=== PATIENT | female | born 1945 | race Caucasian/White ===

== ENCOUNTER → 2020-05-03 | Outpatient (CLI) | payer MEDICARE | END | disposition home or self-care (01) | LOC: LAB SHORT 19:48 | DX: R30.0 Dysuria (principal) | CPT/HCPCS: 87086 ==

== ENCOUNTER → 2022-04-22 | Outpatient (CLI) | payer OTHER ==
[2022-04-23 10:44] LABS: Stool Occult Bld Immuno 1 Negative (NEGATIVE)
== END | disposition home or self-care (01) ==
LOC: LAB 14:10 → LAB SHORT 14:10
PROVIDERS: Family Medicine
DX: Z12.11 Encounter for screening for malignant neoplasm of colon (principal)
CPT/HCPCS: G0328

== ENCOUNTER → 2022-10-15 | Outpatient (CLI) | payer OTHER ==
[2022-10-15 16:11] LABS: BASOPHILS ABSOLUTE AUTO 0.06 K/mm3 (0.00-0.23); BASOPHILS PERCENT AUTO 1 % (0-2); EOSINOPHILS PERCENT AUTO 1 % (0-6); Hematocrit 41.1 % (33.0-51.0); Hemoglobin 13.7 g/dL (11.5-16.0); IMMATURE GRAN ABSOLUTE AUTO 0.03 K/mm3 (0.00-0.10); IMMATURE GRAN PERCENT AUTO 0 % (0-1); LYMPHOCYTES ABSOLUTE AUTO 2.11 K/mm3 (0.84-5.20); LYMPHOCYTES PERCENT AUTO 20 % (21-46); MONOCYTES ABSOLUTE AUTO 0.84 K/mm3 (0.16-1.47); MONOCYTES PERCENT AUTO 8 % (4-13); Mean Corpuscular HGB 29.1 pg (26.0-34.0); Mean Corpuscular HGB Conc 33.3 g/dL (31.5-36.5); Mean Corpuscular Volume 87 fL (80-100); Mean Platelet Volume 9.8 fL (9.1-12.4); NEUTROPHILS PERCENT AUTO 70 % (41-73); Platelet Count 227 K/mm3 (150-400); RDW Coefficient Variation 13.5 % (11.7-14.2); RDW Standard Deviation 43.6 fL (35.1-46.3); White Blood Cell Count 10.34 K/mm3 (4.00-11.30)
[2022-10-15 16:25] LABS: Albumin, Blood 3.8 g/dL (3.4-5.0); Albumin/Globulin Ratio 1.1 (0.8-1.8); Bilirubin, Total 0.3 mg/dL (0.1-1.0); Bun/Creatinine Ratio 21.4 (12.0-20.0); Calcium, Blood 8.9 mg/dL (8.5-10.1); Creatinine, Blood 1.03 mg/dL (0.40-1.00); Globulin, Blood 3.6 g/dL (2.2-4.0); Potassium, Blood 4.3 mmol/L (3.5-5.5); Total Protein, Blood 7.4 g/dL (6.4-8.2)
== END | disposition home or self-care (01) ==
LOC: LAB 16:07 → LAB SHORT 16:07
PROVIDERS: Physician Assistant
DX: K59.00 Constipation, unspecified (principal)
CPT/HCPCS: 80053; 83690; 85025

== ENCOUNTER 2024-03-07 08:39 | Day surgery (SDC) | payer OTHER ==
[~2024-03-07] VITALS: Ht 157.5 cm; Wt 78.2 kg
[2024-03-07] VITALS (13 sets, daily range): BP systolic 116–174; BP diastolic 63–96
[~2024-03-07 08:39] MED LIST: Acetaminophen 500 MG Tab PO SCH; CeFAZolin Sodium 2,000 MG in NS 100 ML IV SCH; Chlorhexidine Mouth Care 15 ML UDC MT SCH; ESTRADIOL CREAM VAG; Lactated Ringer's 1,000 ML IV SCH; OxyCODONE HCL 10 MG TABCR PO SCH; Ropivacaine 0.5% HCl/Pf 123.125 MG,EPINEPHrine HCL 0.25 MG,Ketorolac Tromethamine 15 MG... INFIL SCH; Tranexamic Acid 100 ML IV SCH
--- NOTE | 2024-03-07 09:33 | NUR ---
History, Chart, Medications and Allergies reviewed before start of procedure. Pre-Op teaching done. Pt verbalizes understanding. Patient confirms NPO status and agrees with scheduled surgery. PT BELONGINGS PLACED IN BAG UNDER GURNEY. PTS WALKER PLACED IN PACU. PT IS UNABLE TO REMOVE UNDERWEAR D/T INCONTINENCE.
[2024-03-07] MEDS ORDERED: propofoL 50 ML IV ONE (09:49)
[2024-03-07] MEDS ORDERED: ePHEDrine Sulfate 50 MG/ML 1ML Injection ONE ×2 (09:51→11:36)
[2024-03-07] MEDS ORDERED: Lidocaine HCl 2% 20 ML MDV XX ONE (09:55)
[2024-03-07] MEDS ORDERED: OxyCODONE HCL 5 MG TAB PO PRN ×2 (10:00→10:10)
[2024-03-07] MEDS ORDERED: Ondansetron HCl 2 MG / ML 2ML Vial IV PRN (10:00)
[2024-03-07] MEDS ORDERED: Lactated Ringer's 1,000 ML IV SCH (10:00)
[2024-03-07] MEDS ORDERED: Metoclopramide HCl 5MG / ML 2ML Vial IV PRN (10:00)
[2024-03-07] MEDS ORDERED: Magnesium Hydroxide Conc 10 ML UDC PO PRN (10:00)
[2024-03-07] MEDS ORDERED: Bisacodyl 10 MG Supp PR PRN (10:05)
[2024-03-07] MEDS ORDERED: FLU VACC TS2024-25(6MOS UP)/PF 45 MCG/0.5 ML SYRINGE IM SCH (10:05)
[2024-03-07] MEDS ORDERED: DiphenhydrAMINE HCL 25 MG Cap PO PRN (10:05)
[2024-03-07] MEDS ORDERED: HYDROmorphone HCl/Pf 1MG SYR IV PRN (10:05)
[2024-03-07] MEDS ORDERED: Promethazine HCl 25 MG Tab PO PRN (10:10)
[2024-03-07] MEDS ORDERED: Phenylephrine HCl 100 MCG/ML-NS 10MLSYR (1MG/10ML) ONE (10:51)
[2024-03-07] MEDS ORDERED: propofoL 40 ML IV ONE (10:55)
[2024-03-07] MEDS ORDERED: Lidocaine HCl 2% 20 ML MDV ONE (11:09)
[2024-03-07] MEDS ORDERED: Ketorolac Tromethamine 15mg Vial IV SCH (12:00)
[2024-03-07] MEDS ORDERED: ACET500 PO (12:12)
[2024-03-07] MEDS ORDERED: ASPI81CH PO (12:13)
[2024-03-07] MEDS ORDERED: OXAYDO5 M3 PO (12:14)
[2024-03-07] MEDS ORDERED: Ketorolac Tromethamine 30mg Vial ONE (12:16)
--- NOTE | 2024-03-07 13:22 | NUR ---
PT ARRIVED TO THE ROOM AT APPROXIMATELY 1250. PT IS ALERT, ORIENTED AND PAIN MANAGED. PT HAS DECREASED SENSATION TO BLE R/T SPINAL ANESTHESIA. PT IS ABLE TO WIGGLE HER FEET. SPINAL ANESTHESIA SITE WNL. CALL LIGHT PLACED WITHIN REACH AND PT EDUCATED TO USE.
[2024-03-07] MEDS ORDERED: Acetaminophen 500 MG Tab PO SCH (16:00)
[2024-03-07] MEDS ORDERED: CeFAZolin Sodium 2,000 MG in NS 100 ML IV SCH (18:00)
--- NOTE | 2024-03-07 20:07 | NUR ---
SHIFT SUMMARY PT IS POD#0. PAIN MANAGED WITH PO AND IV PAIN MEDICATION. PT HAS VOIDED, TOLERATING PO AND WORKED WITH PHYSICAL THERAPY. PT USES CALL LIGHT APPROPRIATELY. VSS. REPORT GIVEN TO INDIGO SALVADOR.
[2024-03-07] MEDS ORDERED: Docusate Sodium 100 MG Cap PO SCH (21:00)
[2024-03-08 03:52] VITALS: BP 110/60
--- NOTE | 2024-03-08 04:24 | NUR ---
SHIFT SUMMARY POD 1 S/O LEFT TKA. AQUACEL TO LEFT KNEE INCISION CDI, POLAR PACK IN PLACE. PAIN MANAGED PER EMAR. PT ABLE TO AMBULATE IN HALLWAYS 2X DURING SHIFT. SBA TO BATHROOM WITH FWW AND GATE BELT. TOLERATING PO INTAKE. ABX INFUSED PER ORDERS. PLAN TO WORK WITH THERAPY AND DC HOME TODAY. WILL CONTINUE TO CARE FOR PATIENT AND REPORT TO ONCOMING MADELEINE
[2024-03-08 05:25] LABS: BASOPHILS ABSOLUTE AUTO 0.02 K/mm3 (0.00-0.23); BASOPHILS PERCENT AUTO 0 % (0-2); EOSINOPHILS ABSOLUTE AUTO 0.01 K/mm3 (0.00-0.68); EOSINOPHILS PERCENT AUTO 0 % (0-6); Hematocrit 35.1 % (33.0-51.0); Hemoglobin 11.3 g/dL (11.5-16.0); IMMATURE GRAN ABSOLUTE AUTO 0.07 K/mm3 (0.00-0.10); IMMATURE GRAN PERCENT AUTO 1 % (0-1); LYMPHOCYTES ABSOLUTE AUTO 1.38 K/mm3 (0.84-5.20); LYMPHOCYTES PERCENT AUTO 11 % (21-46); MONOCYTES PERCENT AUTO 6 % (4-13); Mean Corpuscular HGB 28.9 pg (26.0-34.0); Mean Corpuscular HGB Conc 32.2 g/dL (31.5-36.5); Mean Corpuscular Volume 90 fL (80-100); Mean Platelet Volume 9.8 fL (9.1-12.4); NEUTROPHILS ABSOLUTE AUTO 10.55 K/mm3 (1.96-9.15); NEUTROPHILS PERCENT AUTO 82 % (41-73); Platelet Count 199 K/mm3 (150-400); RDW Coefficient Variation 14.1 % (11.7-14.2); RDW Standard Deviation 46.5 fL (35.1-46.3); Red Blood Cell Count 3.91 M/mm3 (3.80-5.20); White Blood Cell Count 12.83 K/mm3 (4.00-11.30)
[2024-03-08 06:09] LABS: Bun/Creatinine Ratio 17.2 (12.0-20.0); Calcium, Blood 8.6 mg/dL (8.5-10.1); Creatinine, Blood 0.82 mg/dL (0.40-1.00); Potassium, Blood 4.3 mmol/L (3.5-5.5)
[2024-03-08 07:02] VITALS: BP 112/60
[2024-03-08] MEDS ORDERED: Ondansetron 4 MG SoluTab SL PRN (07:25)
[2024-03-08] MEDS ORDERED: Aspirin 81 MG Chew PO SCH (09:00)
--- NOTE | 2024-03-08 09:53 | NUR ---
PT REPORTS HX OF GI BLEED AND GI DISCOMFORT R/T ASA USE. DR. MCKEE NOTIFIED AND CHANGED ASA ORDER TO ONCE DAILY INSTEAD OF BID.
[2024-03-08 10:51] VITALS: BP 142/74
--- NOTE | 2024-03-08 11:01 | NUR ---
DISCHARGE PT GIVEN WRITTEN AND VERBAL DISCHARGE INSTRUCTIONS BY LIANNA SALVADOR. THIS RN EDUCATED PT REGARDING THE CHANGE IN HER ASPIRIN DOSING FROM DR. MCKEE FROM BID TO DAILY RT HX OF GI BLEED ISSUES. PT EDUCATED ABOUT S/S OF GI BLEED (COFFEE GROUND EMESIS, PASTY BLACK STOOLS OR BROOKE BLOOD IN STOOL OR VOMIT); PT EDUCATED TO NOTIFY HER DOCTOR IMMEDIATELY IF THESE SYMPTOMS DEVELOP AND TO SEEK MEDICAL ATTENTION. PT ALSO EDUCATED TO WEAR MAC HOSE X6 WEEKS ON BOTH LEGS TO PREVENT BLOOD CLOTS AND TO MAKE SURE SHE DOES ANKLE PUMPS WHILE AT REST TO PREVENT CLOTS. PT VERBALIZED UNDERSTANDING. HOME HEALTH PHYSICAL THERAPY ORDERED, PT SEEN BY MORTGAGE LOAN OFFICER [employer]. PT ASSISTED OUT IN W/C AT 1059. PT MET ALL GOALS PRIOR TO DISCHARGE. VSS.
[2024-03-09] MEDS ORDERED: Aspirin 81 MG Chew PO SCH (09:00)
== END 2024-03-08 10:59 | disposition home or self-care (01) ==
LOC: ORSCMMR 08:39 → SURS 13:03 → ORSCMMR 13:15 → ORD 16:15 → ORSCMMR 16:15 → ORD 16:30 → ORSCMMR 03-08 10:59 → ORD 03-14 13:00
PROVIDERS: Orthopaedic Surgery
PROC: 0SRD0J9 Replacement of Left Knee Joint with Synthetic Substitute, Cemented, Open Approach (ICD-10-PCS; principal; 2024-03-07 10:25)
PROC: 8E0Y0CZ Robotic Assisted Procedure of Lower Extremity, Open Approach (ICD-10-PCS; principal; 2024-03-07 10:25)
DX: M17.12 Unilateral primary osteoarthritis, left knee (principal); I10 Essential (primary) hypertension; E66.9 Obesity, unspecified; Z68.31 Body mass index [BMI] 31.0-31.9, adult; Z79.899 Other long term (current) drug therapy
CPT/HCPCS: 27447; 0055T; 36415; 73560-LT; 80048; 83735; 85025; 97110; 97116; 97162; A9270; C1713; C1776; J0171; J0690; J0735; J1885; J2371; J2405; J2704; J2795; J7120